=== PATIENT | female | born 1990 | race Caucasian/White ===

== ENCOUNTER 2021-07-12 19:41 | Emergency (ER) | payer OTHER, SELFPAY ==
[2021-07-12 19:45] VITALS: BP 85/55; PULSE 78; RESP 22; RESP 24; TEMP 36.6; O2SAT 99
[2021-07-12] MEDS: SODIUM CHLORIDE 0.9% IV 1,000 ML 999 ML IV CONT (20:00)
--- NOTE | 2021-07-12 20:05 | PC.NURSE ---
Pt is able to answer direct questions when ERP Dr Barraza asked pt about SI, pt denied being suicidal and answered that she only took her Suboxone as prescribed from the clinic today. Pt remains lethargic, VSS.
--- NOTE | 2021-07-12 20:14 | ED.OVERDOSE ---
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 It has been 30 hours since she had any fentanyl. Patient arrived very lethargic and had stated to her that she just wanted to . complaint: accidental overdose Onset (ago): hour(s) (5) How Overdose Was Discovered: called family/friend Context: Intentional Overdose: drug/ETOH problems Associated symptoms: depression Treatments Prior to Arrival: none Related Data Home Medications Medication Instructions Recorded Confirmed buprenorphine-naloxone [Suboxone] 2 film BUCCAL DAILY 07/12/21 07/12/21 Allergies Allergy/AdvReac Type Severity Reaction Status Date / Time No Known Allergies Allergy Verified 07/12/21 21:17 Review of Systems Review of Systems: Patient wakes up after Narcan 2 mg IV push and patient states that she just hurts all over she has no other complaints. All systems reviewed & are unremarkable except as noted in HPI and below ROS unobtainable: Yes unobtainable due to mental status PMFSH Past Medical History Medical History (Updated 07/13/21 @ 03:55 by Anoop Barraza MD) Unicameral bone cyst Surgical History Surgical History (Updated 07/12/21 @ 21:15 by Anoop Barraza MD) H/O bone marrow transplant Social History Social History (Updated 07/12/21 @ 21:17 by Anoop Barraza MD) Smoking packs per day: 1 Smoking cigarettes per day: 20.0 Smoking status: Current every day smoker Tobacco type: cigarettes Alcohol use details: does not drink Substance use: current Substance use type: opiates Other substance usage details: fentanyl Exam Const: Nutritional Appearance: well nourished Limitations: altered mental status (lethargic) HENMT: Head: normal to inspection Ears: external ears normal Face and sinus: normal facial exam Mouth: Yes moist mucous membranes Eyes: Conjunctivae: conjunctivae normal Pupils: Equal, round and reactive pupils present EOM: EOMs intact bilaterally Neck: Neck: normal visual inspection Resp: Effort & Inspection: normal respiratory effort Auscultation: clear to auscultation bilaterally Cardio: Rate: regular rate Rhythm: regular rhythm GI: GI Palp: Yes Soft to palpation, Yes Tenderness to palpation present (GI) (moderate diffuse), Yes Guarding due to palpation present (GI) and No Rebound tenderness present Auscultation: normal bowel sounds Back/Spine/Pelvis: Cervical Spine: cervical ROM normal Thoracic/Lumbar Spine: thoraco-lumbar ROM normal Skin: General skin exam: normal color Rashes: no rashes Neuro: General: moves all extremities, no meningeal signs, no focal motor deficits and CN's II-XI intact bilaterally Speech: normal speech Motor exam (neuro): 5/5 motor strength present throughout Extrem: General: normal to inspection and no clubbing, cyanosis or edema Psych: Other: patient becomes combative after 2 mg of Narcan IV push. Had to be restrained. Course Course Emergency Course: patient became combative and necessitated restraints and Ativan 2 mg with Haldol 5 mg IVP Vital Signs Vital signs: Vital Signs Temperature 36.6 C 07/12/21 19:45 Pulse Rate 78 07/12/21 19:45 Respiratory Rate 24 H 07/12/21 19:45 Blood Pressure 85/55 L 07/12/21 19:45 Pulse Oximetry 99 07/12/21 19:45 Temperature 36.2 C L 07/13/21 04:10 Pulse Rate 86 07/13/21 04:10 Respiratory Rate 18 07/13/21 04:10 Blood Pressure 122/74 07/13/21 04:10 Pulse Oximetry 99 07/13/21 04:10 MDM - Overdose MDM Narrative Medical decision making narrative: Patient significantly improved after rest. Restraints have been removed for several hours and patient has been calm.
[2021-07-12] MEDS: NALOXONE HCL INJ 2 MG/2 ML AMP IV PUSH (20:20)
[2021-07-12 20:23] LABS: Basophils Absolute Auto 0.01 K/mm3 (0.00-0.10); Basophils Percent Auto 0.1 % (0.0-1.0); Hematocrit 42.9 % (35.0-49.0); Immature Granulocyte Absolute 0.03 K/mm3 (0.00-0.00); Immature Granulocyte Percent A 0.4 % (0.0-0.0); Lymphocytes Absolute Auto 0.97 K/mm3 (1.10-4.50); Mean Corpuscular HGB Conc 32.6 g/dL (32.0-36.0); Mean Platelet Volume 9.9 fl (9.2-11.8); Monocytes Absolute Auto 0.12 K/mm3 (0.10-0.90); Monocytes Percent Auto 1.7 % (2.0-11.0); Neutrophils Absolute Auto 5.8 K/mm3 (1.7-7.2); Neutrophils Percent Auto 83.8 % (50.0-70.0); Platelet Count Result 287 K/mm3 (150-420); Red Blood Count 4.82 M/mm3 (4.20-5.40); Red Cell Distribution Width 11.9 % (11.6-14.4); White Blood Count 6.9 K/mm3 (4.8-10.8)
[2021-07-12] MEDS: HALOPERIDOL LACTATE 5 MG/ML VIAL IV PUSH (20:30)
[2021-07-12] MEDS: LORazepam INJ (*CRX) 2 MG/ML VIAL IV PUSH (20:40)
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
[2021-07-12 20:47] LABS: Acetaminophen < 2 ug/mL (10-30); Alanine Aminotransferase 16 U/L (14-59); Albumin Level 3.7 g/dL (3.4-5.0); Alkaline Phosphatase 176 U/L (46-116); Anion Gap 11 mmol/L (8-16); Aspartate Amino Transferase 15 U/L (15-37); Bilirubin,Total 0.5 mg/dL (0.00-1.00); Blood Urea Nitrogen 8 mg/dL (7-18); Calcium 9.2 mg/dL (8.5-10.1); Carbon Dioxide 27 mmol/L (21-32); Chloride 104 mmol/L (98-108); Estimated Glomerular Filt Rate > 60; Ethanol < 3 mg/dL (0-6); Glucose 130 mg/dL (70-99); Osmolality Calculated 294 mOsm/kg (285-295); Potassium 3.3 mmol/L (3.5-5.1); Salicylate 3.3 mg/dL (2.8-20.0); Sodium 142 mmol/L (136-145); Thyroid Stimulating Hormone 0.23 uIU/mL (0.36-3.74); Total Protein 7.6 g/dL (6.4-8.2)
[2021-07-12 20:48] LABS: Magnesium 2.1 mg/dL (1.8-2.4)
[2021-07-12 21:00] VITALS: BP 130/75; RESP 18; O2SAT 96
--- NOTE | 2021-07-12 21:00 | PC.NURSE ---
Pt continues to thrash and attempt to get out of restraints. Pt very agitated even p calming therapies attempted. See MAR and orders for meds given IV as per ERP Dr Barraza order.
[2021-07-12 22:00] VITALS: BP 125/75; PULSE 85; RESP 18; O2SAT 95
[2021-07-12 22:44] LABS: Add Urine Microscopic? YES; Appearance Urine Sl Cloudy (Clear); Bilirubin Urine Negative (Negative); Blood Urine 1+ (Negative); Color Urine Light Yellow (Yellow); Glucose Urine UA Negative (Negative); Ketones Urine Negative (Negative); Leukocyte Esterase Ur Negative LEU/UL (Negative); Nitrate Urine Negative (Negative); Protein Urine Negative (Negative); Specific Grav Ur <= 1.005 (1.010-1.020); Urobilinogen Urine 0.2 mg/dL (0.2-1.0)
[2021-07-12 22:49] LABS: Amphetamine Screen Urine Negative (Negative); Barbiturate Screen Urine Negative (Negative); Benzodiazepines Screen Urine Positive (Negative); Cannabinoid Screen Urine Positive (Negative); Cocaine Screen Urine Negative (Negative); Methadone Screen Urine Negative (Negative); Opiate Screen Urine Positive (Negative); Phencyclidine Screen Urine Negative (Negative)
[2021-07-12 22:50] LABS: Bacteria Urine 1+ /hpf; Squamous Epithelial Cell Urine Few /hpf (Few); WBC Urine None seen /hpf (0-3)
[2021-07-13 01:23] VITALS: BP 110/74; PULSE 74; RESP 18; O2SAT 97
--- NOTE | 2021-07-13 01:23 | PC.NURSE ---
Pt sleeping on side, restraints released but remain in place. Pt under close obs. of nurse station.
--- NOTE | 2021-07-13 02:59 | PC.NURSE ---
Pt awakens to name easily at this time. Wanting another blanket, more cooperative at this time, reports understanding why she is here and is A&O x3 currently.
--- NOTE | 2021-07-13 03:50 | PC.NURSE ---
Pt up and awake and A&O x3, sipping water and juice, answers questions appropriately. ERP notified, POC to d/c home c dad.
--- NOTE | 2021-07-13 04:05 | PC.NURSE ---
Pt ambulated to bathroom. D/C instruction given to pt. and father. Pt stated understanding.
[2021-07-13 04:10] VITALS: BP 122/74; PULSE 86; RESP 18; TEMP 36.2; O2SAT 99
== END 2021-07-13 04:18 | disposition home or self-care (01) ==
PROVIDERS: Emergency Provider Emergency Medicine; PCP Family Medicine
DX: F11.23 Opioid dependence with withdrawal (principal); E87.6 Hypokalemia
CPT/HCPCS: 36415; 80053; 80307; 81001; 83735; 84443; 85025; 96361; 96374; 96375; 99283; 99284; J1630; J2060; J2310; J7030

== ENCOUNTER 2022-02-17 18:38 | Emergency (ER) | payer OTHER, SELFPAY ==
[2022-02-17 19:15] VITALS: BP 99/70; PULSE 116; RESP 18; TEMP 36.6; O2SAT 97
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
== END 2022-02-17 19:35 | disposition home or self-care (01) ==
PROVIDERS: Emergency Provider Emergency Medicine; PCP Family Medicine
DX: Z04.1 Encounter for examination and observation following transport accident (principal)
CPT/HCPCS: 99282

== ENCOUNTER 2023-05-25 21:45 | Emergency (ER) | payer OTHER, SELFPAY ==
[2023-05-25 21:45] VITALS: BP 115/68; PULSE 85; RESP 18; TEMP 36.6; O2SAT 100
--- NOTE | 2023-05-25 22:04 | ED.GENADULT ---
HPI - General Adult General Chief complaint: Nausea/Vomiting/Diarrhea Stated complaint: nausea and vomiting Time Seen by Provider: 05/25/23 21:47 History of Present Illness HPI narrative: Chelsea is a 32 that presented to the ED with nausea and vomiting. She has not had a cycle for a couple months but for the last month she has had a lot of nausea. For the last two days she has had 10 episodes of non-bloody vomit each day and cannot keep food down. She has some abdominal tenderness as well but no diarrhea, fevers, dyspnea, chest pain, flank pain, hematuria, dysuria and no vaginal discharge or bleeding. She has no history of prior abdominal surgeries. Related Data Home Medications Medication Instructions Recorded Confirmed Pre-Fatou Multivitamins/Minerals 1 tablet PO DAILY 02/17/22 05/25/23 Allergies Allergy/AdvReac Type Severity Reaction Status Date / Time No Known Allergies Allergy Verified 05/25/23 21:57 Review of Systems Review of Systems: All systems reviewed & are unremarkable except as noted in HPI and below PMFSH Past Medical History Medical History Unicameral bone cyst Surgical History Surgical History H/O bone marrow transplant Social History Social History Smoking packs per day: 1 Smoking cigarettes per day: 20.0 Smoking status: Current every day smoker Tobacco type: cigarettes Alcohol use details: does not drink Substance use: current Substance use type: opiates Other substance usage details: fentanyl Exam Const: General: cooperative, healthy appearing, well developed, alert, awake and Physically active Orientation/consciousness: oriented to person, oriented to place and oriented to time HENMT: Head: normal to inspection, normocephalic and atraumatic Ears: hearing grossly normal bilaterally and external ears normal Face/Nose/Sinus: Normal external nose present Eyes: General: appearance normal, both eyes and all related structures Periorbital: periorbital findings normal Sclera: sclerae normal Pupils: Equal, round and reactive pupils present Neck: Neck: normal visual inspection Chest: Chest palpation & inspection: normal inspection of the chest Resp: Effort & Inspection: normal respiratory effort, able to speak in complete sentences and no respiratory distress Auscultation: clear to auscultation bilaterally Cardio: Jugular venous distension: no JVD Rate: regular rate Rhythm: regular rhythm GI: Inspection: normal to inspection GI Palp: Yes Soft to palpation Auscultation: normal bowel sounds Skin: General skin exam: normal color and no rashes or lesions noted Neuro: General: oriented to person, oriented to place and oriented to time Cranial nerves: Yes Equal, round and reactive pupils present Extrem: General: normal to inspection Course Course Emergency Course: Labs largely unremarkable. She was feeling much better after the fluids and diphenhydramine. We discussed how zofran, while effective but potentially harmful in the first trimester of . While risk is low it is still greater than Diclegis. We discussed sending this to take first and only taking Zofran if Diclegis does not work. Vital Signs Vital signs: Vital Signs Temperature 97.8 F 05/25/23 21:45 Pulse Rate 85 05/25/23 21:45 Respiratory Rate 18 05/25/23 21:45 Blood Pressure 115/68 05/25/23 21:45 Pulse Oximetry 100 05/25/23 21:45 Oxygen Delivery Room Air 05/25/23 21:45 Temperature 97.8 F 05/25/23 21:45 Pulse Rate 85 05/25/23 21:45 Respiratory Rate 18 05/26/23 00:05 Blood Pressure 115/68 05/25/23 21:45 Pulse Oximetry 99 05/26/23 00:05 Oxygen Delivery Room Air 05/25/23 21:45 Medical Decision Making Vital Signs Vital Signs: Vital Signs Temperature 97.8 F 05/25/23 21:45
[2023-05-25] MEDS: SODIUM CHLORIDE 0.9% IV 1,000 ML 999 ML IV CONT (22:16)
[2023-05-25 22:20] LABS: Basophils Absolute Auto 0.01 K/mm3 (0.00-0.10); Basophils Percent Auto 0.2 % (0.0-1.0); Eosinophils Absolute Auto 0.13 K/mm3 (0.02-0.50); Hematocrit 37.3 % (35.0-49.0); Hemoglobin 12.5 g/dL (12.0-15.0); Immature Granulocyte Absolute 0.03 K/mm3 (0.00-0.00); Immature Granulocyte Percent A 0.5 % (0.0-0.0); Lymphocytes Absolute Auto 0.99 K/mm3 (1.10-4.50); Lymphocytes Percent Auto 15.2 % (18.0-42.0); Mean Corpuscular HGB Conc 33.5 g/dL (32.0-36.0); Mean Corpuscular Hemoglobin 29.6 pg (27.0-31.0); Mean Corpuscular Volume 88.4 fL (78.0-102.0); Mean Platelet Volume 10.5 fl (9.2-11.8); Monocytes Absolute Auto 0.18 K/mm3 (0.10-0.90); Monocytes Percent Auto 2.8 % (2.0-11.0); Neutrophils Absolute Auto 5.2 K/mm3 (1.7-7.2); Neutrophils Percent Auto 79.3 % (50.0-70.0); Platelet Count Result 210 K/mm3 (150-420); Red Blood Count 4.22 M/mm3 (4.20-5.40); Red Cell Distribution Width 12.4 % (11.6-14.4); White Blood Count 6.5 K/mm3 (4.8-10.8)
[2023-05-25] MEDS: diphenhydrAMINE HCl INJ 50 MG/ML VIAL IV PUSH (22:28)
[2023-05-25 22:39] LABS: Lactic Acid Reflex 1.1 mmol/L (0.4-2.0)
[2023-05-25 22:39] LABS: Alanine Aminotransferase 19 U/L (14-59); Albumin Level 3.3 g/dL (3.4-5.0); Alkaline Phosphatase 53 U/L (46-116); Anion Gap 9 mmol/L (8-16); Aspartate Amino Transferase 17 U/L (15-37); Bilirubin,Total 0.8 mg/dL (0.00-1.00); Blood Urea Nitrogen 9 mg/dL (7-18); CRP 0.9 mg/dL (0.0-0.9); Calcium 8.7 mg/dL (8.5-10.1); Carbon Dioxide 31 mmol/L (21-32); Chloride 97 mmol/L (98-108); Estimated Glomerular Filt Rate > 60; Glucose 85 mg/dL (70-99); Lipase 14 U/L (16-77); Magnesium 1.9 mg/dL (1.8-2.4); Osmolality Calculated 281 mOsm/kg (285-295); Potassium 3.5 mmol/L (3.5-5.1); Sodium 137 mmol/L (136-145)
[2023-05-25 23:03] LABS: Influenza A QL RT-PCR Negative (Negative); Influenza B QL RT-PCR Negative (Negative); SARS-CoV-2 RNA PCR Negative (Negative)
[2023-05-25 23:04] LABS: RSV RNA, RT-PCR Negative (Negative)
[2023-05-25 23:19] LABS: Appearance Urine Clear (Clear); Bilirubin Urine 2+ (Negative); Blood Urine Negative (Negative); Glucose Urine UA Negative (Negative); Ketones Urine 3+ (Negative); Leukocyte Esterase Ur Negative LEU/UL (Negative); Nitrate Urine Negative (Negative); Protein Urine 1+ (Negative); Specific Grav Ur >= 1.030 (1.010-1.020)
[2023-05-25 23:21] LABS: Pregnancy On Board Control Positive; Urine Pregnancy Test Positive
[2023-05-25 23:26] LABS: Amphetamine Screen Urine Negative (Negative); Barbiturate Screen Urine Negative (Negative); Benzodiazepines Screen Urine Negative (Negative); Cannabinoid Screen Urine Positive (Negative); Cocaine Screen Urine Negative (Negative); Methadone Screen Urine Negative (Negative); Opiate Screen Urine Positive (Negative); Phencyclidine Screen Urine Negative (Negative)
[2023-05-25 23:28] LABS: Add Urine Microscopic? YES; Bacteria Urine 2+ /hpf; Color Urine Dark Yellow (Yellow); Mucus Urine Rare /lpf; RBC Urine 0-2 /hpf (0-2); Squamous Epithelial Cell Urine Moderate /hpf (Few); WBC Urine 0-3 /hpf (0-3)
--- NOTE | 2023-05-25 23:31 | PC.NURSE ---
@ ~2300, pt ambulatory to restroom with steady gait and back to room, able to provide urine sample, provided warm blankets, pt calm and cooperative, denying c/o @ this time, offered HIV test and pt agreed, Dr aware and to order lab and will have lab draw it, awaiting dispo
[2023-05-25 23:47] LABS: HIV 1 P24 AG Negative (Negative); HIV 1/2 AB Negative (Negative)
[2023-05-26 00:05] VITALS: RESP 18; O2SAT 99
== END 2023-05-26 00:04 | disposition home or self-care (01) ==
PROVIDERS: Emergency Provider Family Medicine; PCP Family Medicine
DX: O21.9 Vomiting of pregnancy, unspecified (principal); O99.330 Smoking (tobacco) complicating pregnancy, unspecified trimester; F17.210 Nicotine dependence, cigarettes, uncomplicated; Z20.822 Contact with and (suspected) exposure to COVID-19; Z3A.00 Weeks of gestation of pregnancy not specified
CPT/HCPCS: 36415; 80053; 80307; 81001; 81025; 83605; 83690; 83735; 85025; 86140; 87637; 87806; 96361; 96374; 99284; J1200; J7030